=== PATIENT | male | born 1980 | race Two or more races ===

== ENCOUNTER 2018-03-10 11:23 | Inpatient (IN) | payer MEDICAID ==
[~2018-03-10] VITALS: Ht 177.8 cm; Wt 83.9 kg
[2018-03-10 12:00] LABS: BASOPHILS % (AUTO) 0.5 % (0.0-2.0); EOSINOPHILS % (AUTO) 1.4 % (1.0-6.0); HEMATOCRIT 47.4 % (41-53); HEMOGLOBIN 16.6 g/dL (13.5-17.5); LYMPHOCYTES # (AUTO) 2.5 K/uL (1.0-4.8); LYMPHOCYTES % (AUTO) 28.1 % (22.0-44.0); MEAN CORPUSCULAR HEMOGLOBIN 28.6 pg (26.0-34.0); MEAN CORPUSCULAR VOLUME 82 fL (80-100); MONOCYTES # (AUTO) 0.6 K/uL (0.1-1.0); MONOCYTES % (AUTO) 6.5 % (2.0-9.0); NEUTROPHILS # (AUTO) 5.6 K/uL (1.8-7.7); NEUTROPHILS % (AUTO) 63.5 % (40.0-70.0); PLATELET COUNT (AUTO) 209 K/uL (150-450); RED BLOOD CELL COUNT(AUTO) 5.79 MIL/uL (4.50-5.90); RED CELL DISTRIBUTION WIDTH 13.1 % (11.5-14.5)
[2018-03-10 12:14] LABS: ANION GAP 9 mmol/L (8-16); CALCIUM, TOTAL 9.5 mg/dL (8.8-10.5); CARBON DIOXIDE 28 mmol/L (22-29); CHLORIDE 102 mmol/L (98-107); CREATININE 1.15 mg/dL (0.60-1.30); GLOMERULAR FILTR. RATE CALC > 60 mL/min (>60); GLUCOSE,RANDOM 149 mg/dL (70-110); POTASSIUM 3.6 mmol/L (3.5-5.1); SODIUM SERUM 139 mmol/L (136-145); UREA NITROGEN, BLOOD 18 mg/dL (7-18)
[2018-03-10 12:20] LABS: ALANINE AMINOTRANSFERASE 36 U/L (12-78); ALBUMIN 4.6 g/dL (3.4-5.0); ALKALINE PHOSPHATASE 114 U/L (46-116); ASPARTATE AMINOTRANSFERASE 18 U/L (15-37); BILIRUBIN,TOTAL 0.6 mg/dL (0.1-1.0); TOTAL PROTEIN, SERUM 7.9 g/dL (6.4-8.2)
[2018-03-10 13:49] LABS: AMPHET/METH SCREEN,URINE NEGATIVE (NEGATIVE); BARBITURATE SCREEN, URINE NEGATIVE (NEGATIVE); BENZODIAZEPINES SCREEN,URINE NEGATIVE (NEGATIVE); CANNABINOID SCREEN,URINE NEGATIVE (NEGATIVE); COCAINE SCREEN,URINE NEGATIVE (NEGATIVE); METHADONE SCREEN, URINE NEGATIVE (NEGATIVE); OPIATE SCREEN,URINE NEGATIVE (NEGATIVE)
[2018-03-10 13:50] LABS: PHENCYCLIDINE SCREEN,URINE NEGATIVE (NEGATIVE)
[2018-03-10] MEDS ORDERED: LORazepam 2 MG TABLET PO ONE (14:00)
[2018-03-10 16:38] VITALS: BP 114/69
[2018-03-10] MEDS ORDERED: MAGNESIUM HYDROXIDE SUSPENSION 30 ML UDCUP PO PRN (17:15)
[2018-03-10] MEDS ORDERED: CloNIDine HCL 0.1 MG TABLET PO PRN (17:15)
[2018-03-10] MEDS ORDERED: IBUPROFEN 400 MG TABLET PO PRN (17:15)
[2018-03-10] MEDS ORDERED: DOCUSATE SODIUM 100 MG CAPSULE PO PRN (17:15)
[2018-03-10] MEDS ORDERED: ACETAMINOPHEN 325 MG TABLET PO PRN (17:15)
[2018-03-10] MEDS ORDERED: ALBUTEROL SULFATE HFA 90 MCG/PUFF 8 GM INHALER IH PRN (17:15)
[2018-03-10] MEDS ORDERED: ONDANSETRON HCL 4 MG TABLET PO PRN (17:15)
[2018-03-10] MEDS ORDERED: LOPERAMIDE HCL 2 MG CAPSULE PO PRN (17:15)
[2018-03-10] MEDS ORDERED: MAG HYDROX/AL HYDROX/SIMETH ES 30 ML SUSPENSION UDCUP PO PRN (17:15)
[2018-03-10] MEDS ORDERED: PETROLATUM,WHITE 71 GM JELLY TP PRN (17:15)
[2018-03-10] MEDS ORDERED: GuaiFENesin/D-METHORPHAN [SUGAR-FREE] 200-20MG/10 ML SYRUP UDCUP PO PRN (17:15)
[2018-03-10 17:18] LABS: GLUCOMETER DEV NAME(LOC) BV3N5; GLUCOSE,POINT OF CARE 59 MG/DL (70-110)
[2018-03-10 17:18] LABS: GLUCOMETER DEV NAME(LOC) BV3N5; GLUCOSE,POINT OF CARE 84 MG/DL (70-110)
[2018-03-11 00:37] VITALS: BP 109/62
[2018-03-11 06:18] LABS: GLUCOMETER DEV NAME(LOC) BV3N5; GLUCOSE,POINT OF CARE 89 MG/DL (70-110)
[2018-03-11 08:00] VITALS: BP 119/64
[2018-03-11 08:45] LABS: HEMOGLOBIN A1C 5.5 % (4.5-6.2)
[2018-03-11 09:41] LABS: CHOL/HDL RATIO 5.1 (4.2-7.3); THYROID STIMULATING HORMONE 1.55 uIU/mL (0.36-3.74)
[2018-03-11] MEDS ORDERED: SERTRALINE HCL 50 MG TABLET PO ONE (12:45)
[2018-03-11 16:01] VITALS: BP 118/76
[2018-03-11] MEDS: HALOPERIDOL 5 MG TABLET PO PRN (16:37)
[2018-03-11] MEDS: LORazepam 2 MG TABLET PO PRN (16:37)
[2018-03-11 17:14] LABS: GLUCOMETER DEV NAME(LOC) BV3N5; GLUCOSE,POINT OF CARE 96 MG/DL (70-110)
[2018-03-11] MEDS: PALIPERIDONE 6 MG ER TABLET PO SCH (20:55)
[2018-03-12 05:48] VITALS: BP 112/79
[2018-03-12 06:28] LABS: GLUCOMETER DEV NAME(LOC) BV3N5; GLUCOSE,POINT OF CARE 78 MG/DL (70-110)
[2018-03-12 08:01] VITALS: BP 114/76
[2018-03-12] MEDS: SERTRALINE HCL 50 MG TABLET PO SCH (08:29)
[2018-03-12 16:30] VITALS: BP 121/70
[2018-03-12] MEDS: PALIPERIDONE 6 MG ER TABLET PO SCH (20:34)
[2018-03-13 06:28] VITALS: BP 110/71
[2018-03-13 06:34] LABS: GLUCOMETER DEV NAME(LOC) BV3N5; GLUCOSE,POINT OF CARE 84 MG/DL (70-110)
[2018-03-13 08:01] VITALS: BP 119/72
[2018-03-13] MEDS: SERTRALINE HCL 50 MG TABLET PO SCH (08:16)
[2018-03-13] MEDS: LORazepam 2 MG TABLET PO PRN (08:16)
[2018-03-13 16:00] VITALS: BP 129/85
[2018-03-13 17:13] LABS: GLUCOMETER DEV NAME(LOC) BV3N5; GLUCOSE,POINT OF CARE 97 MG/DL (70-110)
[2018-03-13] MEDS ORDERED: PALIPERIDONE 3 MG ER TABLET PO SCH (21:00)
[2018-03-14 06:34] VITALS: BP 136/87
[2018-03-14 08:01] VITALS: BP 135/90
[2018-03-14] MEDS: SERTRALINE HCL 50 MG TABLET PO SCH (08:33)
[2018-03-14] MEDS: LORazepam 2 MG TABLET PO PRN (08:33)
[2018-03-14] MEDS: HALOPERIDOL 5 MG TABLET PO PRN (08:34)
[2018-03-14 16:00] VITALS: BP 113/80
[2018-03-14] MEDS: PALIPERIDONE 6 MG ER TABLET PO SCH (20:37)
[2018-03-15 06:33] VITALS: BP 124/74
[2018-03-15 08:08] VITALS: BP 114/63
[2018-03-15] MEDS: SERTRALINE HCL 50 MG TABLET PO SCH (08:26)
[2018-03-15 16:00] VITALS: BP 116/70
[2018-03-15] MEDS: PALIPERIDONE 6 MG ER TABLET PO SCH (20:34)
[2018-03-16 05:45] VITALS: BP 107/75
[2018-03-16 08:03] VITALS: BP 121/73
[2018-03-16] MEDS: SERTRALINE HCL 50 MG TABLET PO SCH (08:12)
[2018-03-16] MEDS: PALIPERIDONE 6 MG ER TABLET PO SCH (21:08)
[2018-03-17 06:08] VITALS: BP 106/64
[2018-03-17 08:01] VITALS: BP 106/67
[2018-03-17] MEDS: SERTRALINE HCL 50 MG TABLET PO SCH (08:05)
[2018-03-17 16:12] VITALS: BP 112/68
[2018-03-17] MEDS: LORazepam 2 MG TABLET PO PRN (20:52)
[2018-03-17] MEDS: PALIPERIDONE 6 MG ER TABLET PO SCH (20:52)
[2018-03-18 05:34] VITALS: BP 108/65
[2018-03-18 08:03] VITALS: BP 115/66
[2018-03-18] MEDS: SERTRALINE HCL 50 MG TABLET PO SCH (08:29)
[2018-03-18] MEDS: ZOLPIDEM TARTRATE 10 MG TABLET PO PRN (21:18)
[2018-03-18] MEDS: PALIPERIDONE 6 MG ER TABLET PO SCH (21:18)
[2018-03-19 05:29] VITALS: BP 112/71
[2018-03-19 08:06] VITALS: BP 107/68
[2018-03-19] MEDS: SERTRALINE HCL 50 MG TABLET PO SCH (08:38)
[2018-03-19] MEDS: HALOPERIDOL 5 MG TABLET PO PRN ×2 (08:38→16:26)
[2018-03-19] MEDS: LORazepam 2 MG TABLET PO PRN ×2 (08:38→16:26)
[2018-03-19 16:01] VITALS: BP 110/62
[2018-03-19] MEDS: ZOLPIDEM TARTRATE 10 MG TABLET PO PRN (20:14)
[2018-03-19] MEDS: PALIPERIDONE 6 MG ER TABLET PO SCH (20:14)
[2018-03-20 08:01] VITALS: BP 122/76
[2018-03-20] MEDS: SERTRALINE HCL 50 MG TABLET PO SCH (09:25)
[2018-03-20 16:01] VITALS: BP 112/70
[2018-03-20] MEDS: PALIPERIDONE 6 MG ER TABLET PO SCH (21:18)
[2018-03-21 05:21] VITALS: BP 114/74
[2018-03-21 08:35] VITALS: BP 121/69
[2018-03-21] MEDS: SERTRALINE HCL 50 MG TABLET PO SCH (08:49)
[2018-03-21 16:11] VITALS: BP 110/66
[2018-03-21] MEDS: PALIPERIDONE 6 MG ER TABLET PO SCH (20:15)
[2018-03-21] MEDS: ZOLPIDEM TARTRATE 10 MG TABLET PO PRN (20:15)
[2018-03-22 06:37] VITALS: BP 108/65
[2018-03-22 08:02] VITALS: BP 110/72
[2018-03-22] MEDS: SERTRALINE HCL 50 MG TABLET PO SCH (08:11)
[2018-03-22 16:20] VITALS: BP 126/72
[2018-03-22] MEDS: PALIPERIDONE 6 MG ER TABLET PO SCH (21:42)
[2018-03-22] MEDS: ZOLPIDEM TARTRATE 10 MG TABLET PO PRN (21:42)
[2018-03-23 06:49] VITALS: BP 117/76
[2018-03-23 08:01] VITALS: BP 116/81
[2018-03-23] MEDS: SERTRALINE HCL 50 MG TABLET PO SCH (08:28)
[2018-03-23] MEDS ORDERED: PALIPERIDONE PALMITATE 234 MG/1.5 ML SYRINGE IM SCH (09:00)
[2018-03-23] MEDS: PALIPERIDONE 6 MG ER TABLET PO SCH (20:06)
[2018-03-24 06:12] VITALS: BP 125/80
[2018-03-24 08:01] VITALS: BP 112/74
[2018-03-24] MEDS: SERTRALINE HCL 50 MG TABLET PO SCH (08:15)
[2018-03-24] MEDS: DIVALPROEX SODIUM 500 MG ER TABLET PO SCH ×2 (10:45→16:38)
[2018-03-24 16:04] VITALS: BP 105/62
[2018-03-24] MEDS: PALIPERIDONE 6 MG ER TABLET PO SCH (20:34)
[2018-03-24] MEDS: ZOLPIDEM TARTRATE 10 MG TABLET PO PRN (20:34)
[2018-03-25 06:44] VITALS: BP 111/68
[2018-03-25 08:00] VITALS: BP 119/59
[2018-03-25] MEDS: SERTRALINE HCL 50 MG TABLET PO SCH (08:31)
[2018-03-25] MEDS: DIVALPROEX SODIUM 500 MG ER TABLET PO SCH ×2 (08:31→17:00)
[2018-03-25 16:04] VITALS: BP 102/64
[2018-03-25] MEDS: PALIPERIDONE 6 MG ER TABLET PO SCH (20:22)
[2018-03-26 05:15] VITALS: BP 116/68
[2018-03-26 08:01] VITALS: BP 120/68
[2018-03-26] MEDS: DIVALPROEX SODIUM 500 MG ER TABLET PO SCH ×2 (08:17→17:30)
[2018-03-26] MEDS: SERTRALINE HCL 50 MG TABLET PO SCH (08:17)
[2018-03-26 16:01] VITALS: BP 122/71
[2018-03-26] MEDS: PALIPERIDONE 6 MG ER TABLET PO SCH (20:54)
[2018-03-27 06:05] VITALS: BP 110/66
[2018-03-27 08:01] VITALS: BP 113/70
[2018-03-27] MEDS: HALOPERIDOL 5 MG TABLET PO PRN (08:35)
[2018-03-27] MEDS: LORazepam 2 MG TABLET PO PRN (08:35)
[2018-03-27] MEDS: SERTRALINE HCL 50 MG TABLET PO SCH (08:35)
[2018-03-27] MEDS: DIVALPROEX SODIUM 500 MG ER TABLET PO SCH ×2 (08:35→17:02)
[2018-03-27 16:01] VITALS: BP 110/66
[2018-03-27] MEDS: PALIPERIDONE 6 MG ER TABLET PO SCH (20:39)
[2018-03-27] MEDS: ZOLPIDEM TARTRATE 10 MG TABLET PO PRN (20:39)
[2018-03-28 05:46] VITALS: BP 108/65
[2018-03-28 08:02] VITALS: BP 119/80
[2018-03-28] MEDS: SERTRALINE HCL 50 MG TABLET PO SCH (08:25)
[2018-03-28] MEDS: LORazepam 2 MG TABLET PO PRN (08:25)
[2018-03-28] MEDS: DIVALPROEX SODIUM 500 MG ER TABLET PO SCH (08:25)
[2018-03-28] MEDS: HALOPERIDOL 5 MG TABLET PO PRN (08:25)
[2018-03-28] MEDS ORDERED: DIVA500T52 PO (12:49)
[2018-03-28] MEDS ORDERED: PALI6 PO (12:49)
[2018-03-28] MEDS ORDERED: SERT100T12 PO (12:49)
== END 2018-03-28 15:15 | disposition home or self-care (01) | DRG 750 ==
LOC: EMS 11:24 → B3A 15:11
PROVIDERS: ADMIT Psychiatry & Neurology Psychiatry; ATTEND Psychiatry & Neurology Psychiatry
DX: F20.0 Paranoid schizophrenia (principal); R45.850 Homicidal ideations; R45.87 Impulsiveness; F41.9 Anxiety disorder, unspecified; F19.10 Other psychoactive substance abuse, uncomplicated; G47.00 Insomnia, unspecified; R10.13 Epigastric pain; F10.10 Alcohol abuse, uncomplicated; Y90.9 Presence of alcohol in blood, level not specified; Z71.41 Alcohol abuse counseling and surveillance of alcoholic; Z71.51 Drug abuse counseling and surveillance of drug abuser; Z79.899 Other long term (current) drug therapy; Z91.19 Patient's noncompliance with other medical treatment and regimen; Z91.14 Patient's other noncompliance with medication regimen; Z23 Encounter for immunization
CPT/HCPCS: 83036; 84443; 90686; G0480